=== PATIENT | female | born 1985 | race Caucasian/White ===

== ENCOUNTER 2017-11-05 01:14 | Emergency (ER) | payer OTHER ==
[~2017-11-05] VITALS: Ht 165.1 cm; Wt 53.5 kg
[2017-11-05] MEDS ORDERED: MEDROL DOSEPAK4 MG PO (01:37)
[2017-11-05 01:56] VITALS: BP 142/98
== END 2017-11-05 01:57 | disposition home or self-care (01) ==
LOC: EME 01:14
DX: L30.9 Dermatitis, unspecified (principal); F41.9 Anxiety disorder, unspecified; F17.200 Nicotine dependence, unspecified, uncomplicated
CPT/HCPCS: 99281; 99283; J7512